=== PATIENT | female | born 2000 | race Caucasian/White ===

== ENCOUNTER 2022-06-19 09:55 | Outpatient (CLI) | payer OTHER | END 2022-06-19 09:56 | disposition home or self-care (01) | LOC: BICULT 09:55 | PROVIDERS: ATTEND Family Medicine | DX: Z34.02 Encounter for supervision of normal first pregnancy, second trimester (principal); Z3A.22 22 weeks gestation of pregnancy | CPT/HCPCS: 76805 ==